=== PATIENT | female | born 2000 | race Caucasian/White ===

== ENCOUNTER 2019-12-04 00:20 | Emergency (ER) | payer MEDICAID ==
--- NOTE | 2019-12-04 01:35 | ED Physician Documentation ---
PD HPI ABD PAIN - Stated complaint Stated Complaint: BLOOD IN STOOL/ABD PX - Chief complaint Chief Complaint: Abd Pain - History obtained from History obtained from: Patient - History of Present Illness Timing - onset: Today Timing - details: Abrupt onset, Intermittant Pain level max: 2 Pain level now: 0 Quality: Cramping Location: LLQ Improved by: Other (nothing) Worsened by: Other (no apparent inciting nor exacerbating factors) Associated symptoms: Hematochezia. No: Fever, Nausea, Vomiting, Diarrhea, Constipation Similar symptoms before: Has not had sx before - Additional information Additional information: c/o BRBPR with BM around noon today and again tonight 10 PM. Mild generalized cramping abdominal discomfort, most pronounced in LLQ, episodic and not currently present. Denies h/o similar problem. Started escitalopram 5 days ago Review of Systems Constitutional: denies: Fever, Chills, Sweats Cardiac: reports: Reviewed and negative Respiratory: reports: Reviewed and negative GI: reports: Abdominal Pain (resolved), Bloody / black stool. denies: Abdominal Swelling, Nausea, Vomiting, Constipation, Diarrhea, Hematemesis : denies: Dysuria, Frequency, Now EGA PD PAST MEDICAL HISTORY - Past Medical History Past Medical History: Yes Respiratory: Asthma GI: Hemorrhoids Psych: Depression, Anxiety - Past Surgical History HEENT: Tonsil/Adenoidectomy, Other - Allergies Allergies/Adverse Reactions: Allergies Allergy/AdvReac Type Severity Reaction Status Date / Time No Known Drug Allergies Allergy Verified 12/04/19 00:41 - Social History Does the pt smoke?: No Smoking Status: Never smoker Does the pt drink ETOH?: No Does the pt have substance abuse?: No - Immunizations Immunizations are current?: Yes - POLST Patient has POLST: No PD ED PE NORMAL - Vitals Vital signs reviewed: Yes - General General: Alert and oriented X 3, No acute distress, Well developed/nourished - Cardiac Cardiac: RRR, No murmur - Respiratory Respiratory: No respiratory distress, Clear bilaterally - Abdomen Abdomen: Soft, Non tender Results - Vitals Vitals: Oxygen O2 Source Room air PD MEDICAL DECISION MAKING - ED course Complexity details: considered differential, d/w patient ED course: patient describes BRBPR x 2 episodes without clots. I recommended blood tests but patient declines. She is concerned that the escitalopram might be related to the bleeding, as she read information on line about a possible link. Looking at the information on [facility] about this medication, there is questionable association with UGI bleeding but no data to suggest LGIB association. Departure - Departure Disposition: 01 Home, Self Care Clinical Impression: Bright red blood per rectum Condition: Good Instructions: ED Hematochezia Stable Discharge Date/Time: 12/04/19 01:54
[2019-12-04 01:55] VITALS: BP 138/90
== END 2019-12-04 01:54 | disposition home or self-care (01) ==
LOC: ED 00:20
DX: K62.5 Hemorrhage of anus and rectum (principal)
CPT/HCPCS: 99281; 99283